=== PATIENT | female | born 1950 | race Caucasian/White ===

== ENCOUNTER 2018-01-24 18:13 | Inpatient (IN) ==
[2018-01-24] MEDS ORDERED: 0.9 % SODIUM CHLORIDE 1,000 ML IV ONE (18:30)
[2018-01-24] MEDS ORDERED: ONDANSETRON 4 MG/2 ML VIAL IV ONE (18:31)
--- NOTE | 2018-01-24 19:28 | Emergency Department Note ---
Nausea/Vomiting/Diarrhea HPI - General Chief complaint: Nausea/Vomiting/Diarrhea Stated complaint: N/v/d, body aches, sweats, r chest and abd pain Time Seen by Provider: 01/24/18 18:30 Source: patient Mode of arrival: ambulatory Limitations: no limitations - History of Present Illness HPI Narrative: 67-year-old female presents at the emergency Department today with complaints of nausea and vomiting that began morning and then diarrhea started evening. She states that she started to have some right upper quadrant and right lower quadrant abdominal pain with radiation through to her back. She describes the pain as sharp. Rates the pain 9 out of 10 on the 0-10 numerical pain score. She feels that she has had a slight fever with some chills, but she has not taken her temperature at home. She reports that she does feel occasionally short of breath and had some right upper chest pain. - Related Data Home Medications Medication Instructions Recorded Confirmed glucosamine sulfate 500 mg capsule 500 mg PO QDAY cap 01/13/17 01/24/18 ibuprofen 400 mg tablet 400 mg PO DAILY PRN tab 02/06/17 01/24/18 omega-3 fatty acids 1 tab PO DAILY 02/06/17 01/24/18 ketorolac 0.5 % eye drops 1 drp OPHTHALMIC TIDP PRN 30 Days 10/20/17 01/24/18 #10 Calcium Carb/Mag/Vitamin D3 [Coral 1 each PO DAILY 01/24/18 01/24/18 Calcium 1,500 mg Cap] Previous Rx's Medication Instructions Recorded hydroxychloroquine 200 mg tablet 200 mg PO BID #60 tab 12/29/17 Allergies Allergy/AdvReac Type Severity Reaction Status Date / Time Sulfa (Sulfonamide Allergy Unknown Unknown Verified 01/24/18 18:14 Antibiotics) Review of Systems Review of Systems: Except as noted in the HPI, a 12 - system Review of Systems was found to be negative. Specifically: Constitutional: No chronic fatigue, unexplained weight gain, or weight loss. Eyes: No visual impairment, no pain, watering, discharge, or itching. ENT: No ear or sinus infections. No reoccurring nosebleeds, no chronic nasal congestion. No mouth lesions or dental pain. No throat pain or dysphagia. Respiratory: No wheezing, dyspnea on exertion, or chronic cough. CV: No cyanosis, palpitations, dizziness, or fainting. GI: No reflux symptoms. Musculoskeletal: No muscle pain or weakness, no joint pain or limitations. Neurologic: No headache, weakness, numbness, dizziness, or seizures. Endocrine: No hot or cold intolerances, excessive sweating, excessive thirst, or frequent urination. Hematologic/lymphatic: No blood disorder. No swollen lymph nodes. Integumentary: No problem with rashes, eczema, changing of skin lesions. No nail abnormalities. Psychiatric: No depression, anxiety, or sleep disorder. Past Medical History - Past Medical History Medical history: Reports: arthritis (osteoarthritis) TAPE TRANSFERRER history: Reports: non-contributory Surgical history ED: Reports: non-contributory - Social History smoking status: Never smoker Physical Exam Limitations: no limitations General appearance: alert, in no apparent distress Eye: Present: normal appearance, PERRL, EOMI. Absent: scleral icterus, conjunctival injection ENT: normal exam, normal oropharynx, mucous membranes moist Chest: Present: normal inspection, symmetric chest wall rise. Absent: tenderness Respiratory: Present: normal lung sounds bilaterally. Absent: respiratory distress, accessory muscle use Cardiovascular: Present: regular rate, normal rhythm, +S1, +S2. Absent: systolic murmur, diastolic murmur Abdominal: Present: soft, hypoactive bowel sounds, psoas sign, tenderness at McBurney's Point. Absent: distention, guarding, rebound, rigidity, organomegaly , obturator sign Abdominal tenderness: Present: RUQ, RLQ, LUQ Extremities: Present: normal inspection, full ROM, normal capillary refill. Absent: pedal edema Back: Present: normal inspection. Absent: CVA tenderness (R), CVA tenderness (L ) Neurological: Present: alert, oriented X3, normal gait Skin: Present: warm, dry, intact, normal color Course Vital Signs Temperature 97.6 F 01/24/18 18:14 Pulse Rate 94 H 01/24/18 18:14 Respiratory Rate 16 01/24/18 18:14 Blood Pressure 108/51 01/24/18 18:14 Pulse Oximetry (%) 96 01/24/18 18:14 Temperature 97.6 F 01/24/18 18:14 Pulse Rate 96 H 01/24/18 20:31 Respiratory Rate 16 01/24/18 18:14 Blood Pressure 127/54 01/24/18 20:01 Pulse Oximetry (%) 98 01/24/18 20:31 Nausea/Vomiting/Diarrhea - [facility] Narrative Medical decision making narrative: Patient was given morphine for pain and ondansetron for nausea. Total of 2 L normal saline was given in the emergency department. Dr. Juanjo Merlos was called with ultrasound findings and labs. Blood cultures were obtained as well as urine collection for culture. Urine dipstick is negative. Patient was started on Zosyn 3.375 mg every 6 hours. Patient will be admitted to the [facility] floor and Dr. Juanjo Merlos will see the patient on the floor. White blood cells are 23.5. CMP shows total bilirubin at 2.6 and ALTs 42. Remaining CMP is remarkably well. Lipase is normal at 20. Urine dipstick is negative for nitrites and leukocytes. Moderate amount of blood. Urine sent for culture. - Lab Data Lab results reviewed: Yes I reviewed the patient's lab results. Result diagrams: 01/24/18 18:45 01/24/18 18:45 Lab Results 01/24/18 01/24/18 01/24/18 Range/Units 18:45 18:45 18:45 WBC 23.5 H (4.5-11.0) K/mcL RBC 5.19 (4.00-5.20) M/mcL Hgb 16.0 H (12.0-15.0) g/dL Hct 47.3 (36.0-48.0) % MCV 91.1 (80.0-100.0) fL MCH 30.8 (26.0-34.0) pg MCHC 33.8 (31.0-36.0) g/dL RDW 12.8 (11.5-14.5) % Plt Count 251 (140-440) K/mcL MPV 9.6 (7.4-10.4) fL Gran % 85.1 H (38.0-78.0) % Lymph % (Auto) 7.2 L (15.5-49.0) % Cobb % (Auto) 7.2 (1.0-12.0) % Eos % (Auto) 0.5 (0.0-7.0) % Baso % (Auto) 0 (0.0-2.0) % Gran # 20.0 H (1.8-8.0) K/mcL Lymph # (Auto) 1.7 (1.5-4.8) K/mcL Cobb # (Auto) 1.7 H (0.1-0.9) K/mcL Eos # (Auto) 0.1 (0.0-0.7) K/mcL Baso # (Auto) 0 (0.0-0.3) K/mcL Differential Comment VBG Lactic Acid (0.5-2.2) mmol/L Sodium 137 (133-145) mmol/L Potassium 3.5 (3.3-5.1) mmol/L Chloride 99 (96-108) mmol/L Carbon Dioxide 22 (22-30) mmol/L Anion Gap 16.0 (8-16) BUN 13 (8-23) mg/dl Creatinine 0.8 (0.6-1.1) mg/dl GFR Calculation 77 Glucose 123 H (70-105) mg/dL Calcium 9.4 (8.6-10.4) mg/dl Total Bilirubin 2.6 H (0.0-1.0) mg/dL AST 30 (0-37) U/l ALT 42 H (0-40) U/l Alkaline Phosphatase 69 (39-117) U/L Troponin T < 0.01 (0-0.03) ng/ml Total Protein 7.5 (5.9-8.4) gm/dL Albumin 4.1 (3.2-5.2) gm/dL Globulin 3.4 (2.2-3.7) gm/dL Albumin/Globulin Ratio 1.2 (1.0-2.3) Lipase (7-60) U/L 01/24/18 01/24/18 Range/Units 18:45 19:55 WBC (4.5-11.0) K/mcL RBC (4.00-5.20) M/mcL Hgb (12.0-15.0) g/dL Hct (36.0-48.0) % MCV (80.0-100.0) fL MCH (26.0-34.0) pg MCHC (31.0-36.0) g/dL RDW (11.5-14.5) % Plt Count (140-440) K/mcL MPV (7.4-10.4) fL Gran % (38.0-78.0) % Lymph % (Auto) (15.5-49.0) % Cobb % (Auto) (1.0-12.0) % Eos % (Auto) (0.0-7.0) % Baso % (Auto) (0.0-2.0) % Gran # (1.8-8.0) K/mcL Lymph # (Auto) (1.5-4.8) K/mcL Cobb # (Auto) (0.1-0.9) K/mcL Eos # (Auto) (0.0-0.7) K/mcL Baso # (Auto) (0.0-0.3) K/mcL Differential Comment VBG Lactic Acid 1.2 (0.5-2.2) mmol/L Sodium (133-145) mmol/L Potassium (3.3-5.1) mmol/L Chloride (96-108) mmol/L Carbon Dioxide (22-30) mmol/L Anion Gap (8-16) BUN (8-23) mg/dl Creatinine (0.6-1.1) mg/dl GFR Calculation Glucose (70-105) mg/dL Calcium (8.6-10.4) mg/dl Total Bilirubin (0.0-1.0) mg/dL AST (0-37) U/l ALT (0-40) U/l Alkaline Phosphatase (39-117) U/L Troponin T (0-0.03) ng/ml Total Protein (5.9-8.4) gm/dL Albumin (3.2-5.2) gm/dL Globulin (2.2-3.7) gm/dL Albumin/Globulin Ratio (1.0-2.3) Lipase 20 (7-60) U/L - Radiology Data Radiology results reviewed: Yes I reviewed the patient's radiology results. Ultrasound shows gallbladder wall 3.9 mm and pancreatic duct dilated at 4.4 mm. Multiple stones and debris noted within the gallbladder. Small amount pericholecystic fluid noted. Common bile duct 5.5 mm Chest x-ray normal - EKG Data EKG attestation: Yes I reviewed and interpreted this EKG. EKG shows normal: sinus rhythm Rate: normal Disposition Pt seen by RECOVERY COLLECTOR/PA only: Yes Clinical Impression: Cholecystitis, acute with cholelithiasis Disposition: Xfer As Inpt ([facility] [place] Condition: Fair Referrals: Keyona Barker [Primary Care Provider] -
[2018-01-24 19:33] LABS: Basophils # (Auto) 0 K/mcL (0.0-0.3); Basophils % (Auto) 0 % (0.0-2.0); Eosinophils # (Auto) 0.1 K/mcL (0.0-0.7); Eosinophils % (Auto) 0.5 % (0.0-7.0); Granulocytes % (Auto) 85.1 % (38.0-78.0); Lymphocytes # (Auto) 1.7 K/mcL (1.5-4.8); Lymphocytes % (Auto) 7.2 % (15.5-49.0); Mean Cell Volume 91.1 fL (80.0-100.0); Mean Corpuscular HGB Conc 33.8 g/dL (31.0-36.0); Mean Corpuscular Hemoglobin 30.8 pg (26.0-34.0); Monocytes # (Auto) 1.7 K/mcL (0.1-0.9); Monocytes % (Auto) 7.2 % (1.0-12.0); Platelet Count 251 K/mcL (140-440); RBC 5.19 M/mcL (4.00-5.20); Red Cell Distribution Width 12.8 % (11.5-14.5)
[2018-01-24 19:55] LABS: ALT/SGPT 42 U/l (0-40); Albumin 4.1 gm/dL (3.2-5.2); Albumin/Globulin Ratio 1.2 (1.0-2.3); Alkaline Phosphatase 69 U/L (39-117); Blood Urea Nitrogen 13 mg/dl (8-23)
[2018-01-24] MEDS ORDERED: PIPERACILLIN SODIUM/TAZOBACTAM 3.375 GM in DEXTROSE 5% IN WATER 50 ML IV ONE (20:13)
[2018-01-24] MEDS: PIPERACILLIN SODIUM/TAZOBACTAM 3.375 GM in DEXTROSE 5% IN WATER 50 ML IV SCH (20:37)
[2018-01-24 20:56] LABS: Appearance,Urine HAZY; Bacteria,Urine 0 /hpf (0); Bilirubin,Urine NEG (NEG); Color,Urine AMBER; Glucose,Urine (UA) 50 mg/dL (NEG); Leukocyte Esterase,Urine NEG /uL (NEG); Mucus,Urine MANY /hpf (0); Protein,Urine 100 mg/dL (NEG); Specific Gravity,Urine 1.025 (1.000-1.035); Urine Blood 0.03 mg/dL (<0.03); Urine Granular Cast 8 /lpf (0); Urine Hyaline Cast 4 /lpf (0-2); Urine RBC 16 /hpf (0-1); Urine Squamous Epithelial Cell < 1 /hpf (0-4); Urine Transitional Epi Cells < 1 /hpf (0-2); Urine WBC 8 /hpf (0-4)
[2018-01-24] MEDS: 0.9 % SODIUM CHLORIDE 1,000 ML IV SCH (21:12)
[2018-01-24] MEDS ORDERED: KETOROLAC TROMETHAMINE OU PRN (22:33)
--- NOTE | 2018-01-24 22:40 | General Surg History&Physical ---
History of Present Illness Patient information: Note initiated : 01/24/18 at 10:38 pm Service Date, if different from initiated Date: [] Patient: Pamela Michel 67 y/o F admitted on 01/24/18 for N/v/d, body aches, sweats, r chest and abd pain. Chief Complaint: [abdominal pain nausea vomiting] HPI: Ms. Michel is a 67 year old F with history of acute onset of right-sided abdominal pain and back pain on .. This was followed by multiple episodes of nausea and vomiting for over 4 hours. On Friday her pain was intermittent and she had onset of multiple diarrheal stools. She developed more back and chest pain today as well as the abdominal pain and she finally was seen in the emergency room. She was noted to have a tender abdomen and 23, 000 white count.. Upper abdominal ultrasound shows an acutely inflamed gallbladder with multiple stones with pericholecystic fluid. Chest x-ray shows right sided early infiltrate in the right lower lobe. Patient is admitted and will be treated with antibiotics. She was counseled for laparoscopic cholecystectomy to be done in the morning.. Review of Systems - Constitutional fatigue, malaise - EENT Eyes: bilateral: dry eye Nose, mouth and throat: dry mouth - Cardiovascular chest pain with activity, no chest pain at rest, no palpatations, no rapid heart rate - Respiratory pain with cough, other (splinting right chest due to pain) - Gastrointestinal abdominal pain, cramping, diarrhea, heartburn, nausea, vomiting - Genitourinary Genitourinary: no difficulty urinating, no dysuria, no nocturia - Musculoskeletal arthralgias, back pain, joint swelling, muscle cramps, myalgias, numbness, stiffness, tingling - Integumentary dry skin, no pruritus, no rash - Neurological numbness ( bilateral lower leg), no abnormal gait, no confusion, no dizziness - Psychiatric no anxiety, no depression - Endocrine no polydipsia, no polyphagia, no polyuria - Hematologic/Lymphatic no easy bleeding, no easy bruising, no lymphadenopathy - Allergic/Immunologic no tongue swelling, no throat swelling, no uticaria, no wheezing, no lip swelling Past History Past medical history: Chronic inflammatory arthropathy. Past surgical history: Abdominoplasty Right great toe bunionectomy Past family history: Father due to complications of diabetes stroke and heart disease age 72 Mother due to complications of chronic obstructive lung disease age 90 Past social history: Never smoker Occasional alcohol intake Denies drug use Retired Medications and Allergies Home Medications Medication Instructions Recorded Confirmed Type glucosamine sulfate 500 mg capsule 500 mg PO QDAY cap 01/13/17 01/24/18 History ibuprofen 400 mg tablet 400 mg PO DAILY PRN tab 02/06/17 01/24/18 History omega-3 fatty acids 1 tab PO DAILY 02/06/17 01/24/18 History ketorolac 0.5 % eye drops 1 drp OPHTHALMIC TIDP PRN 30 Days 10/20/17 01/24/18 History #10 hydroxychloroquine 200 mg tablet 200 mg PO BID #60 tab 12/29/17 01/24/18 Rx Calcium Carb/Mag/Vitamin D3 [Coral 1 each PO DAILY 01/24/18 01/24/18 History Calcium 1,500 mg Cap] Allergies Allergy/AdvReac Type Severity Reaction Status Date / Time Sulfa (Sulfonamide Allergy Unknown Unknown Verified 01/24/18 18:14 Antibiotics) Exam Temp Pulse Resp BP Pulse Ox 98.9 F 93 H 24 H 114/68 94 01/24/18 20:53 01/24/18 20:53 01/24/18 20:53 01/24/18 20:53 01/24/18 20:53 - General physical appearance well developed, well nourished, no distress - Eyes PERRL, normal ocular movement, icteric - ENT normal pinna, normal nares, normal mucosa, no hearing loss, no congestion - Head Head exam IM: Present: atraumatic, normocephalic - Neck no masses, no bruits, trachea midline, no lymphadectomy, no venous distension - Cardiovascular Cardiovascular exam IM: Present: normal rate and rhythm - Respiratory normal respiratory effort, other (decreased breath sounds right lung with basilar rales but no wheezes; splinting right side with deep breath) - Abdomen Abdomen: Present: tender ( diffuse tenderness more prominent right upper quadrant and epigastrium with guarding;; mild distention) , bowel sounds Hernia: Present: none - Genitourinary Present: normal external genitalia - Integumentary Present: no rash, no growths, no abnormal pigmentation - Neurologic Present: normal coordination, normal sensation - Musculoskeletal Present: normal gait, normal posture - Psychiatric Present: oriented to time, oriented to person, oriented to place, speech is normal, memory intact Assessment and Plan (1) Cholecystitis, acute with cholelithiasis Zosyn 3.375 g IV every 6 hours Scheduled for cholecystectomy in the morning Status: Acute (2) Right pulmonary infiltrate on CXR Zosyn 3.375 g IV every 6 hours Follow-up chest x-ray in 2 days Status: Acute (3) Inflammatory osteoarthritis Status: Chronic
[2018-01-25] MEDS: PIPERACILLIN SODIUM/TAZOBACTAM 3.375 GM in DEXTROSE 5% IN WATER 50 ML IV SCH ×5 (02:45→23:47)
[2018-01-25 05:27] LABS: Basophils # (Auto) 0 K/mcL (0.0-0.3); Basophils % (Auto) 0 % (0.0-2.0); Eosinophils # (Auto) 0.1 K/mcL (0.0-0.7); Eosinophils % (Auto) 0.4 % (0.0-7.0); Granulocytes % (Auto) 87.1 % (38.0-78.0); Lymphocytes # (Auto) 0.8 K/mcL (1.5-4.8); Lymphocytes % (Auto) 5.7 % (15.5-49.0); Mean Cell Volume 91.4 fL (80.0-100.0); Mean Corpuscular HGB Conc 33.9 g/dL (31.0-36.0); Mean Corpuscular Hemoglobin 30.9 pg (26.0-34.0); Monocytes % (Auto) 6.8 % (1.0-12.0); Platelet Count 178 K/mcL (140-440); RBC 4.23 M/mcL (4.00-5.20); Red Cell Distribution Width 12.8 % (11.5-14.5)
[2018-01-25] MEDS: 0.9 % SODIUM CHLORIDE 1,000 ML IV SCH ×5 (05:49→21:52)
[2018-01-25 06:06] LABS: ALT/SGPT 32 U/l (0-40); Albumin 3.1 gm/dL (3.2-5.2); Albumin/Globulin Ratio 1.1 (1.0-2.3); Alkaline Phosphatase 67 U/L (39-117); Blood Urea Nitrogen 9 mg/dl (8-23)
[2018-01-25] MEDS ORDERED: PANTOPRAZOLE 40 MG VIAL IV SCH (07:30)
--- NOTE | 2018-01-25 08:45 | Ultrasound Report ---
History: Right upper quadrant pain FINDINGS: The liver is normal in size and homogeneous. The gallbladder contains multiple stones and sludge. The wall is thickened measuring up to 3.9 mm and there is a small amount of pericholecystic fluid. The intrahepatic ducts are nondilated. Proximal common bile duct is 5.5 mm and the distal common bile duct is 9.8 mm. There may be sludge or noncalcified stones in the distal duct at the level of the pancreatic head. The patient was very tender while scanning over the gallbladder. The pancreas is normal in size but the duct is dilated measuring 4.4 mm. There is no evidence of acute pancreatitis. IMPRESSION: Cholelithiasis and acute cholecystitis Dilated distal common bile duct and pancreatic duct. There may be sludge or stone in the distal common bile duct near the ampulla. Interpreted and Authenticated by: Aime Mack 01/25/18
--- NOTE | 2018-01-25 08:46 | XRay Report ---
HISTORY: Chest pain FINDINGS: There is a moderate size band of discoid atelectasis located centrally in the right middle lobe. The remainder of the lung lyle are clear. The heart size, pulmonary vasculature, mediastinum, ej and pleura are normal. IMPRESSION: Discoid atelectasis in the right middle lobe Interpreted and Authenticated by: Aime Mack 01/25/18
[2018-01-25] MEDS ORDERED: GLYCOPYRROLATE 0.2 MG/ML VIAL IV ONE (09:25)
[2018-01-25] MEDS ORDERED: LIDOCAINE HCL/PF 100 MG/5 ML SYRINGE IV ONE (09:25)
[2018-01-25] MEDS ORDERED: ESMOLOL 100 MG/10 ML VIAL IV ONE (09:25)
[2018-01-25] MEDS ORDERED: ROCURONIUM 10 MG/ML ML IV ONE (09:25)
[2018-01-25] MEDS ORDERED: PROPOFOL 200 MG/20 ML VIAL IV ONE (09:25)
[2018-01-25] MEDS ORDERED: NEOSTIGMINE 1 MG/ML VIAL IV ONE (09:25)
[2018-01-25] MEDS ORDERED: PHENYLEPHRINE 10 MG/ML VIAL IV ONE (09:25)
[2018-01-25] MEDS ORDERED: KETAMINE 100 MG/ML ML IV ONE (09:25)
[2018-01-25] MEDS ORDERED: MIDAZOLAM 2 MG/2 ML VIAL IV ONE (09:25)
[2018-01-25] MEDS ORDERED: fentaNYL 100 MCG/2 ML VIAL IV ONE (09:25)
[2018-01-25] MEDS ORDERED: ONDANSETRON 4 MG/2 ML VIAL IV ONE (09:25)
[2018-01-25] MEDS ORDERED: MEPERIDINE 25 MG/ML SYRINGE IV PRN (09:59)
[2018-01-25] MEDS ORDERED: ONDANSETRON 4 MG/2 ML VIAL IV PRN (09:59)
[2018-01-25] MEDS ORDERED: fentaNYL 100 MCG/2 ML VIAL IV PRN (09:59)
[2018-01-25] MEDS ORDERED: IPRATROPIUM/ALBUTEROL 3 ML AMPUL.NEB NEB PRN (09:59)
[2018-01-25] MEDS ORDERED: MEPERIDINE 50 MG/ML INJECTION IM PRN (09:59)
[2018-01-25] MEDS ORDERED: HYDROmorphone 2 MG/ML VIAL IV PRN (09:59)
[2018-01-25] MEDS ORDERED: ACETAMINOPHEN 1,000 MG/100 ML BOTTLE IV ONE (09:59)
[2018-01-25] MEDS ORDERED: PROMETHAZINE 25 MG/ML VIAL IV PRN (09:59)
[2018-01-25] MEDS ORDERED: KETOROLAC 15 MG/ML VIAL IV PRN (09:59)
[2018-01-25] MEDS ORDERED: PROMETHAZINE 25 MG/ML VIAL IM PRN (09:59)
[2018-01-25] MEDS ORDERED: LACTATED RINGERS 1,000 ML IV SCH (10:00)
--- NOTE | 2018-01-25 10:37 | Brief Operative Note ---
Date of procedure: 01/25/18 Pre-op diagnosis: ACUTE CHOLECYSTITIS WITH CHOLELITHIASIS Post-op diagnosis: other (ACUTE GANGRENOUS CHOLECYSTITIS) Procedure: LAPAROSCOPIC CHOLECYSTECTOMY Grafts/Implants: No (GEOVANNY X 1) Anesthesia: GETA Findings: ACUTE SEVERE CHOLECYSTITIS WITH FULL THICKNESS GANGRENOUS CHANGES Complications: none Surgeon: Abelino Merlos Estimated blood loss (cc): 50 Specimens Removed/Pathology: other (GALLBLADDER) Condition: stable Disposition: PACU
[2018-01-25] MEDS ORDERED: KETOROLAC TROMETHAMINE OU PRN (11:12)
[2018-01-25] MEDS: PANTOPRAZOLE 40 MG VIAL IV SCH (17:26)
[2018-01-26] MEDS: 0.9 % SODIUM CHLORIDE 1,000 ML IV SCH ×3 (01:26→18:06)
[2018-01-26] MEDS: PIPERACILLIN SODIUM/TAZOBACTAM 3.375 GM in DEXTROSE 5% IN WATER 50 ML IV SCH ×4 (05:40→23:35)
[2018-01-26 05:41] LABS: Mean Cell Volume 91.3 fL (80.0-100.0); Mean Corpuscular HGB Conc 34.1 g/dL (31.0-36.0); Mean Corpuscular Hemoglobin 31.2 pg (26.0-34.0); Platelet Count 187 K/mcL (140-440); RBC 3.76 M/mcL (4.00-5.20); Red Cell Distribution Width 12.3 % (11.5-14.5)
[2018-01-26 05:51] LABS: ALT/SGPT 63 U/l (0-40); Albumin 2.9 gm/dL (3.2-5.2); Albumin/Globulin Ratio 1.2 (1.0-2.3); Alkaline Phosphatase 55 U/L (39-117); Bilirubin,Direct 0.4 mg/dL (0.0-0.3); Blood Urea Nitrogen 6 mg/dl (8-23); Gamma Glutamyl Transpeptidase 38 U/L (5-36); Uric Acid 1.4 mg/dL (2.5-8.0)
[2018-01-26] MEDS: PANTOPRAZOLE 40 MG VIAL IV SCH ×2 (06:46→17:46)
[2018-01-26 07:55] LABS: Band Neutrophils % 5 % (0-10); Eosinophils % (Manual) 2 % (0-7); Lymphocytes % 15 % (15-49); Monocytes % (Manual) 8 % (1-12); Platelet Estimate NORMAL (NORMAL); RBC Morphology NORMAL (NORMAL); Segmented Neutrophils % 70 % (38-78)
[2018-01-26] MEDS ORDERED: PNEUMOCOCCAL 23-VAL P-SAC VAC 0.5 ML VIAL IM ONE (09:00)
[2018-01-26] MEDS: oxyCODONE/APAP 10/325MG TABLET PO PRN ×2 (15:25→23:34)
--- NOTE | 2018-01-26 17:45 | General Surgery Progress Note ---
Subjective Patient reports: feels better, pain is less, tolerating liquids well, flatus, bowel movement, afebrile Narrative: Note initiated : 01/26/18 at 5:43 pm Service Date, if different from initiated Date: [] Patient: Pamela Michel 67 y/o F admitted on 01/24/18 for Cholecystitis, Acute with Cholelithiasis. Chief Complaint: [Patient is stable. Her pain is controlled. She has had some nausea. White blood count is decreased to 9.5. Chem panel unremarkable except for phosphorus of 1.8] Objective Temp Pulse Resp BP Pulse Ox 98.6 F 82 16 95/59 93 01/26/18 11:34 01/26/18 03:49 01/26/18 11:34 01/26/18 11:34 01/26/18 11:34 - Additional Data Intake & Output - Last 24 hours: Intake & Output 01/24/18 01/25/18 01/26/18 01/27/18 05:59 05:59 05:59 05:59 Intake Total 1100 / 1100 4108 / 4108 1979 Output Total 2595 / 2595 1025 / 1025 Balance 1100 / 1100 1513 / 1513 955 / 955 Weight 143 lb 142 lb 12.8 oz 142 lb 12.8 oz - General physical appearance well developed, well nourished, no distress - Eyes PERRL, normal ocular movement - ENT normal pinna, normal nares, normal mucosa, no hearing loss, no congestion - Neck no masses, no bruits, trachea midline, no venous distension - Respiratory normal expansion, normal respiratory effort, clear to percussion, clear to auscultation - Cardiovascular Cardiovascular exam: Present: normal rate and rhythm, RRR, +S1, +S2 - Abdomen tender (mild incisional tenderness with good active bowel sounds), bowel sounds (present), surgical scars (none), masses (none) - Integumentary no rash, no growths, no abnormal pigmentation - Neurologic normal coordination, normal sensation - Musculoskeletal normal gait, normal posture - Psychiatric oriented to time, oriented to person, oriented to place, speech is normal, memory intact - Labs 01/26/18 04:00 01/26/18 04:00 Diabetes panel 01/26/18 Range/Units 04:00 Sodium 140 (133-145) mmol/L Potassium 3.5 (3.3-5.1) mmol/L Chloride 105 (96-108) mmol/L Carbon Dioxide 25 (22-30) mmol/L BUN 6 L (8-23) mg/dl Creatinine 0.6 (0.6-1.1) mg/dl Glucose 83 (70-105) mg/dL Calcium 7.9 L (8.6-10.4) mg/dl AST 47 H (0-37) U/l ALT 63 H (0-40) U/l Alkaline Phosphatase 55 (39-117) U/L Total Protein 5.4 L (5.9-8.4) gm/dL Albumin 2.9 L (3.2-5.2) gm/dL Triglycerides 95 (<150) mg/dl Calcium panel 01/26/18 Range/Units 04:00 Calcium 7.9 L (8.6-10.4) mg/dl Phosphorus 1.8 L (2.7-4.5) mg/dL Albumin 2.9 L (3.2-5.2) gm/dL Pituitary panel 01/26/18 Range/Units 04:00 Sodium 140 (133-145) mmol/L Potassium 3.5 (3.3-5.1) mmol/L Chloride 105 (96-108) mmol/L Carbon Dioxide 25 (22-30) mmol/L BUN 6 L (8-23) mg/dl Creatinine 0.6 (0.6-1.1) mg/dl Glucose 83 (70-105) mg/dL Calcium 7.9 L (8.6-10.4) mg/dl Adrenal panel 01/26/18 Range/Units 04:00 Sodium 140 (133-145) mmol/L Potassium 3.5 (3.3-5.1) mmol/L Chloride 105 (96-108) mmol/L Carbon Dioxide 25 (22-30) mmol/L BUN 6 L (8-23) mg/dl Creatinine 0.6 (0.6-1.1) mg/dl Glucose 83 (70-105) mg/dL Calcium 7.9 L (8.6-10.4) mg/dl Total Bilirubin 1.4 H (0.0-1.0) mg/dL AST 47 H (0-37) U/l ALT 63 H (0-40) U/l Alkaline Phosphatase 55 (39-117) U/L Total Protein 5.4 L (5.9-8.4) gm/dL Albumin 2.9 L (3.2-5.2) gm/dL Assessment and Plan (1) Cholecystitis, acute with cholelithiasis Status: Acute Assessment and plan: stable and improved status post laparoscopic cholecystectomy ; Current Visit: Yes (2) Right pulmonary infiltrate on CXR Status: Acute Assessment and plan: We will schedule for chest x-ray in the morning Current Visit: Yes (3) Inflammatory osteoarthritis Status: Chronic Current Visit: No - Time Spent With Patient Total time spent is greater than 50% in coordination of care (as documented) at patient's floor/unit and/or counseling patient:
[2018-01-26] MEDS ORDERED: POTASSIUM PHOSPHATE 40 MEQ in DEXTROSE 5% IN WATER 500 ML IV ONE (18:00)
[2018-01-27] MEDS: PIPERACILLIN SODIUM/TAZOBACTAM 3.375 GM in DEXTROSE 5% IN WATER 50 ML IV SCH ×2 (06:06→12:42)
[2018-01-27 06:45] LABS: Mean Cell Volume 90.7 fL (80.0-100.0); Mean Corpuscular HGB Conc 34.9 g/dL (31.0-36.0); Mean Corpuscular Hemoglobin 31.7 pg (26.0-34.0); Platelet Count 222 K/mcL (140-440); RBC 3.64 M/mcL (4.00-5.20); Red Cell Distribution Width 12.8 % (11.5-14.5)
[2018-01-27] MEDS: PANTOPRAZOLE 40 MG VIAL IV SCH (06:50)
--- NOTE | 2018-01-27 07:19 | XRay Report ---
CLINICAL INFORMATION: Follow-up right basilar infiltrate /atelectasis COMPARISON: 01/24/2018 FINDINGS: The heart is borderline enlarged but unchanged. Mediastinum and pulmonary vessels are unremarkable. Mild right middle lobe atelectasis unchanged - given differences in technique. There is minimal subsegmental atelectasis developing in the the left base. No effusions. A 20 mm calcification overlies the mid right cervical spine. IMPRESSION: Mild right middle lobe atelectasis - unchanged. 20 mm calcification overlying mid right cervical spine on the edge of the film. This was not included on the previous imaging studies, thus, stability is unknown. This is likely a large degenerative spur; however, heavy focal atherosclerotic calcification in the right carotid bifurcation is also a possibility. If there is a right-sided bruit on physical exam, consider carotid Doppler study Interpreted and Authenticated by: Cameron Miles 01/27/18
[2018-01-27 07:47] LABS: ALT/SGPT 43 U/l (0-40); Albumin 2.8 gm/dL (3.2-5.2); Alkaline Phosphatase 59 U/L (39-117); Bilirubin,Direct < 0.2 mg/dL (0.0-0.3); Blood Urea Nitrogen 4 mg/dl (8-23); Gamma Glutamyl Transpeptidase 40 U/L (5-36); Uric Acid 1.6 mg/dL (2.5-8.0)
[2018-01-27 07:49] LABS: Band Neutrophils % 2 % (0-10); Eosinophils % (Manual) 5 % (0-7); Lymphocytes % 17 % (15-49); Monocytes % (Manual) 10 % (1-12); Platelet Estimate NORMAL (NORMAL); RBC Morphology NORMAL (NORMAL); Segmented Neutrophils % 66 % (38-78)
[2018-01-27] MEDS: oxyCODONE/APAP 10/325MG TABLET PO PRN (09:39)
--- NOTE | 2018-01-27 11:17 | Surgical Pathology Report ---
HISTOLOGY SPECIMEN MICROSCOPIC DIAGNOSIS GALLBLADDER, CHOLECYSTECTOMY: -- NECROTIZING ACUTE AND CHRONIC CHOLECYSTITIS. -- CHOLELITHIASIS. (DMT:hilary) PROCEDURAL IMPRESSION Acute cholecystitis with gangrene. GROSS DESCRIPTION Received in formalin labeled "A", is an 8.1 x 5.4 x 1.4 cm green to miles-paz gallbladder. There is one metal clip identified at the galbladder neck. There are metal que present on the duct. The gallbladder specimen is filled with viscous green fluid and multiple miles multifaceted stones present ranging in size from 0.1 to 0.9 cm. The mucosa is velvety green. The wall is up to 0.1 cm thick with attached paz fat up to 0.3 cm. Framing Carpenter sections submitted in one cassette. (GAS:sln) Electronically Signed by: Evin Castro M.D.
[2018-01-27] MEDS ORDERED: ACETAMINOPHEN 500 MG TABLET PO PRN (12:45)
--- NOTE | 2018-01-27 14:13 | Discharge Summary ---
Providers - Providers Patient information: Note initiated : 01/27/18 at 2:09 pm Service Date, if different from initiated Date: [] Patient: Pamela Michel 67 y/o F admitted on 01/24/18 for Cholecystitis, Acute with Cholelithiasis. Chief Complaint: [] Date of admission: 01/24/18 Discharge date: 01/27/18 Attending physician: Abelino Merlos Hospitalization Hospital course: This 67-year-old female who presented to the emergency room with complaint of severe abdominal pain, shoulder and back pain with nausea and vomiting of 2 days ' duration. She was found to have leukocytosis and evidence of multiple gallstones with thickened gallbladder wall. She was started on IV antibiotics and underwent cholecystectomy on 25 January. She was found to have acute gangrenous cholecystitis. She had an uneventful dissection and the gallbladder was removed and drained. Her white count returned to normal. She had slight increase in drainage today and the drainage has a bilious tINT. The cystic duct was stapled with a MAYURI stapler, so it is unlikely that this is leaking. It was suggested that she had an accessory duct that was leaking. Her drain is adequately decompressing so it will be left in place for 2 weeks. After 2 weeks. She will have a HIDA scan to look for leak. If the leak is found, she will have ERCP with stent placement until the leak closes. Patient is otherwise stable. She has had some difficulty with incomplete evacuation of her bladder, but she does void 300+ cc per voiding and she is able to empty another 300+ cc shortly thereafter. She is advised that she probably will need to have evaluation by urology at a future date. Discharge diagnosis: acute gangrenous cholecystitis with cholelithiasis Secondary discharge diagnosis: Incomplete urinary evacuation with possible neurogenic bladder. Possible accessory duct leak Chronic inflammatory arthropathy Reason for admission: recurrent abdominal pain, nausea, vomiting Procedures: Laparoscopic cholecystectomy Pertinent studies/significant findings: CT of the abdomen and pelvis with contrast Complications: None Exam Temp Pulse Resp BP Pulse Ox 97.2 F 72 16 107/62 97 01/27/18 12:12 01/27/18 04:00 01/27/18 12:12 01/27/18 12:12 01/27/18 12:12 - General physical appearance well developed, well nourished, no distress - Eyes PERRL, normal ocular movement - ENT normal pinna, normal nares, normal mucosa, no hearing loss, no congestion - Head Head exam IM: Present: atraumatic, normocephalic - Neck no masses, no bruits, trachea midline, no lymphadectomy, no venous distension - Cardiovascular Cardiovascular exam IM: Present: normal rate and rhythm - Respiratory normal expansion, normal respiratory effort, clear to percussion, clear to auscultation - Abdomen Abdomen: Present: soft, tender ( ), bowel sounds, distended Hernia: Present: none - Genitourinary Present: normal external genitalia - Integumentary Present: no rash, no growths, no abnormal pigmentation - Neurologic Present: normal coordination, normal sensation - Musculoskeletal Present: normal gait, normal posture - Psychiatric Present: oriented to time, oriented to person, oriented to place, speech is normal, memory intact Discharge Plan - Patient/Caregiver Discharge Instructions Activity: increase activity as tolerated Diet: Low Fat Additional Instructions: Empty and measure GEOVANNY drainage daily. May shower starting tomorrow. Office follow-up in 2 weeks Prescriptions: RX: oxyCODONE/APAP [Percocet 10-325Mg] 1 tab PO Q4HP PRN #30 tab PRN Reason: Pain Level 3-6 - Follow up Plan Follow up with: Keyona Barker [Primary Care Provider] - Disposition: Home, Self-Care Prognosis: Good Rehab Potential: Good I certify that the patient requires SNF services.: No Overall status at discharge: patient is not back to baseline Pending Studies Resuscitation Status Full Code Diet Regular Diet Start FriJan 26 [id number] Piperacillin Sod/Tazobactam (Sod 3.375 gm/ Dextrose) 50 mls @ 100 mls/hr IV Q6H LADAN Last Infusion: 01/27/18 13:10 Dose: 100 mls/hr Admin: 01/27/18 12:42 Dose: 100 mls/hr Infusion: 01/27/18 06:50 Dose: 100 mls/hr Admin: 01/27/18 06:06 Dose: 100 mls/hr Infusion: 01/27/18 00:05 Dose: 100 mls/hr Admin: 01/26/18 23:35 Dose: 100 mls/hr Infusion: 01/26/18 19:27 Dose: 0 mls/hr Admin: 01/26/18 17:46 Dose: 100 mls/hr Infusion: 01/26/18 14:54 Dose: 100 mls/hr Admin: 01/26/18 11:34 Dose: 100 mls/hr Infusion: 01/26/18 06:10 Dose: 100 mls/hr Admin: 01/26/18 05:40 Dose: 100 mls/hr Infusion: 01/26/18 01:14 Dose: 0 mls/hr Admin: 01/25/18 23:47 Dose: 100 mls/hr Infusion: 01/25/18 20:00 Dose: 0 mls/hr Admin: 01/25/18 17:27 Dose: 100 mls/hr Infusion: 01/25/18 13:03 Dose: 0 mls/hr Admin: 01/25/18 12:33 Dose: 100 mls/hr Morphine Sulfate (Morphine) 4 mg IV Q2HP PRN PRN Reason: Pain Last Admin: 01/26/18 08:46 Dose: 4 mg Admin: 01/26/18 01:27 Dose: 4 mg Admin: 01/25/18 21:16 Dose: 4 mg Admin: 01/25/18 15:16 Dose: 4 mg Admin: 01/25/18 11:31 Dose: 4 mg Oxycodone/Acetaminophen (Percocet 10-325mg) 1 tab PO Q4HP PRN PRN Reason: PAIN LEVEL 3-6 Last Admin: 01/27/18 09:39 Dose: 1 tab Admin: 01/26/18 23:34 Dose: 1 tab Admin: 01/26/18 15:25 Dose: 1 tab Pantoprazole Sodium (Protonix) 40 mg IV BIDAC LADAN Last Admin: 01/27/18 06:50 Dose: 40 mg Admin: 01/26/18 17:46 Dose: 40 mg Admin: 01/26/18 06:46 Dose: 40 mg Admin: 01/25/18 17:26 Dose: 40 mg Shift Summary 01/27/18 03:16 Shift Summary by Masha Temple Pt cont to have difficulties empting bladder. Last void was for 300 with PRV 300. Will scan again just before 6am. Pt has GEOVANNY drain to right side with minimal out this shift. Pt was medicated x1 for c/o pain. Pt is up to bathroom with 1 assist to get in and out of bed but SBA and fww once up. Pt was able to ambulate in hallway this shift. Will update with verbal report. Initialized on 01/27/18 03:16 - END OF NOTE
[2018-01-27] MEDS ORDERED: PNEUMOCOCCAL 23-VAL P-SAC VAC 0.5 ML VIAL IM ONE (15:15)
--- NOTE | 2018-01-28 14:58 | Operative Note ---
DATE OF OPERATION: 01/25/2018 PREOPERATIVE DIAGNOSIS: Acute cholecystitis with cholelithiasis. POSTOPERATIVE DIAGNOSIS: Acute gangrenous cholecystitis with cholelithiasis. PROCEDURE: Laparoscopic cholecystectomy. SURGEON: Abelino Merlos MD FINDINGS: Acute severe cholecystitis, acute gangrenous changes of the wall and severe inflammation. DESCRIPTION OF PROCEDURE: Under general anesthesia, the patient's abdomen was prepped and draped in a sterile field. Supraumbilical incision was made. Veress needle was inserted uneventfully. Abdomen was insufflated with C02. A 12 mm port was placed and the laparoscope was inserted. There was severe inflammation in the right upper quadrant, bilious tinged ascitic fluid around the liver, colon, and gallbladder. Under videoscopic guidance, a 12 mm port and two 5 mm ports were placed in the right upper quadrant. Another 12 mm port was placed in the left upper quadrant for placement of vein retractor. The gallbladder was decompressed with a Weck needle. The purulence was removed from the lumen of the gallbladder. Once it was decompressed, the gallbladder was grasped in position. The infundibulum was dissected bluntly. Essentially all of the dissection was done bluntly because of ___ . The cystic duct was dissected and followed back to the gallbladder. More medially the cystic artery branch was dissected and followed back to the . The cystic duct was very thickened and inflamed. It was dissected to its junction with the gallbladder and was then transected using Endo-MAYURI stapler. Staple line appeared secure. The cystic artery branch was clipped with four clips and divided. Using the Kitner dissector, the gallbladder was then from the infrahepatic bed. Vascular structures were bluntly dissected, clipped with three clips and divided until the gallbladder was removed. The gallbladder was placed in an Endopouch and retrieved. One stone fell in the abdomen and was grasped with the stone forceps and retrieved. Copious irrigation was carried out. Hemostasis in the bed was achieved with electrocautery. #10 Iain-Munoz drain was placed in the subhepatic space and positioned so that it would not move. It was brought out through the most lateral incision. More irrigation was carried out after which the air was allowed to escape from the abdomen and the ports were removed. Fascia at the umbilicus was closed with 0 Vicryl interrupted. Fascia in the medial upper port on the right side was closed with interrupted 0 Prolene. The skin incisions were closed with que. The drain was secured with 2-0 nylon and the skin around the drain was closed with interrupted 2-0. Dressings were placed. The procedure was tolerated well. Patient was awakened, transferred to a bed and taken to the Post-Anesthetic Care Unit in stable satisfactory condition. LCS:miryam Job ID: [id number] Doc ID: [id number] Abelino Merlos M.D.
== END 2018-01-27 15:40 | disposition home or self-care (01) | DRG 418 ==
LOC: ED 18:13 → MEDSUR 18:13 → OBSVTOIN 20:53 → MEDSUR 21:49
PROVIDERS: ADMIT Family Medicine Adult Medicine; ATTEND Family Medicine Adult Medicine